=== PATIENT | male | born 2000 | race Caucasian/White ===

== ENCOUNTER 2024-11-27 23:19 | Emergency (ER) | payer OTHER, SELFPAY ==
[2024-11-27 23:29] VITALS: BP 123/75; PULSE 88; RESP 16; TEMP 36.9; O2SAT 99; BMI 25.1
[2024-11-28] MEDS: LIDOCAINE/EPINEP/TETRACAINE 3 ML GEL..ML. TOPICAL (00:10)
[2024-11-28] MEDS: LIDOCAINE 1%-EPI 1:100,000 20 ML INFILTRATI (00:25)
--- OUTSIDE RECORDS SUMMARY | 2024-11-28 00:33 | XMS_ITS | Clinical Summary ---
Author Organization [facility] Address [place], [place] [address] Care Team Providers Care Bruise Trimmer Name Role Phone Unavailable Primary Care Provider Unavailabl e Allergies Active Allergy Reactions Criticality Noted Date Comments Penicillins Hives High 05/17/2011 Medications Lantus Solostar U-100 Insulin 100 unit/mL (3 mL) pen ADMINISTER 28 TO 35 UNITS UNDER THE SKIN DAILY 2 Active insulin lispro, U-100, (HUMALOG KWIKPEN; ADMELOG SOLOSTAR) 100 unit/mL inpn pen ADMINISTER 60 UNITS UNDER THE SKIN DAILY 2 Active Dexcom G6 Transmitter for continuous blood glucose monitor (CGM) USE DIRECTED FOR CONTINUOUS GLUCOSE MONITORING. CHANGE EVERY 3 MONTHS 2 Active Active Problems Problem Noted Date Diagnosed Date Type 2 diabetes mellitus wit hout complication, with long-term current use of insulin 10/31/2022 Immunizations Name Administration Dates Next Due DTaP 08/19/2006, 2,01/01/2002,10/21 DTaP-HIB (TriHIBIT) 11/24/2002 HIB-HepB (Comvax) 01/01/2002,2001 HPV 9 (Gardasil 9) 07/04/2016,10/04/2015, 015 Hepatitis A (Peds) 08/24/2009,08/29/2007 Hepatitis B (Peds) 06/16/2002 Inactivated Polio Vaccine 08/19/2006,04/2002,01/01/2002,10/21 Influenza Virus, Unspecified 10/30/2021, 08/12/2020,08/10/2019,08/05,07/02/2016,10/04/2015,08/03/2014 ,08/17/2013 Influenza, IIV4 (Age 6-35 Mos) 08/17/2013 MENINGOCOCCAL VACCINE 2 VIAL [id number] (MENVEO) 10/06/2013 MMR 08/19/2006,08/27/2002 Pneumococcal conj 7-Valent (Prevnar 7) 0 11/24/2002,06/16/2002,02/19/2002,10/21 Tdap 10/06/2013 Varicella Vaccine 08/29/2007,08/27/2002 Family History Relation Name Status Comments Father Alive Mother Alive Social History Tobacco Use Types Packs/Day Years Used Date Smoking Tobacco: Never Smokeless Tobacco: Never Tobacco Cessation:Counseling Given: Not Answered PHQ-2 Answer Date Recorded PHQ-2 TOTAL SCORE 0 10/30/2022 Social Connections Answer Date Recorded Frequency of Communication with Friends and Fami ly Not on file 10/30/2022 Sex and Gender Information Value Date Recorded Sex Assigned at Not on file Legal Sex Male 2:59 PM CDT Gender Identity Not on file Sexual Orientation Not on file Obstetrics History Last Filed Vital Signs Vital Sign Reading Time Taken Comments Blood Pressure 122/74 10/30/2022 3:16 PM SUB ARC OPERATOR Pulse 68 10/30/2022 3:16 PM SUB ARC OPERATOR Temperature - - Respiratory Rate 16 10/30/2022 3:16 PM SUB ARC OPERATOR Oxygen Saturation 98% 10/30/2022 3:16 PM SUB ARC OPERATOR Inhaled Oxygen Concentration - - Weight 76.7 kg (169 lb) 10/30/2022 3:16 PM SUB ARC OPERATOR Height 176.5 cm (5' 9.5) 10/30/2022 3:16 PM SUB ARC OPERATOR Body Mass Index 24.6 10/30/2022 3:16 PM SUB ARC OPERATOR Plan of Treatment Health Maintenance Due Date Last Done Comments HIV for age 15-65 2016 Hepatitis C screening for age 18-79 2019 Tetanus booster 10/06/2023 10/06/2013 BMI (ht and wt on same day) for age 18+ 10/30/2023 10/30/2022 Depression screening for age 12+ 10/30/2023 10/30/2022 COVID-19 vaccine series ( season) 2024 07/11/2022, 04/19/2021, 03/29/2021 Influenza for age 9-49 07/12/2024 , 08/12/2020, 08/10/2019, Additional history exists Pneumococcal series for age 6-49 Aged Out 11/24/2002, 06/16/2002, 02/19/2002, Additional history exists No longer eligible based on patient's age to complete this topic Tdap Completed 10/06/2013 HPV series for age 9-26 Completed 07/04/20 16, 10/04/2015, 06/16/2015 [place] [id number]
--- OUTSIDE RECORDS SUMMARY | 2024-11-28 00:33 | XMS_ITS | Clinical Summary ---
Author Organization [facility] Address [address] [place] [address] Care Team Providers Care Artificial Log Machine Operator Name Role Phone Yana Ballard MD Primary Care Provider + [phone] Source Comments You are receiving this document as you are listed as the primary care provider,follow-up provider, or the patient has been referred to you for consultation.This is in compliance with the Medicare and[employer] EHR Incentive Program,which states Providers who transition their patient to another setting of careor provider of care or refers their patient to another provider of care shouldprovide summary care record for each transition of care or referral. [employer] Allergies Active Allergy Reactions Criticality Noted Date Comments Penicillins Hives High 05/17/2011 Medications Medication Sig Dispensed Refills Start Date End Date Status lancets (NATE MICROLET)Indication s:Type 1 diabetes mellitus with hyperglycemia (HRC) Use 3-4 Each to test daily. Use as directed. Pharmacy dispense brand based on insurance. 100 Each 11 11/12/2017 Active acetone urine (KETOSTIX) test stripIndications:Ty pe 1 diabetes mellitus without complications (HRC) Use 1 Each to test as needed. Test when sick or glucose>300 two times in a row 50 Each 3 11/01/2022 Active Accu-Chek Vannessa Plus meterIndications:Ty pe 1 diabetes mellitus without complications (HRC) Use 1 Each to test as needed (For High Blood Sugar). 1 Each 2 02/13/2024 Active blood glucose (ACCU-CHEK VANNESSA PLUS) test stripIndications:Ty pe 1 diabetes mellitus without complications (HRC) Use 1 Each to test 4 times a day. 150 Strip 11 02/13/2024 Active insulin lispro, human, (HUMALOG; ADMELOG) 100 UNIT/ML injection penIndications:Type 1 diabetes mellitus without complications (HRC) Inject 50 Units subcutaneously daily. 45 mL 3 06/25/2024 Active insulin glargine (LANTUS SOLOSTAR) 100 UNIT/ML penIndications:Type 1 diabetes mellitus without complications (HRC) Inject 28-35 Units subcutaneously daily. 30 mL 3 06/25/2024 Active glucagon (BAQSIMI TWO PACK) 3 MG/DOSE nasal powderIndications:T ype 1 diabetes mellitus without complications (HRC) Place 1 Dose (3 mg) into one nostril as needed for Hypoglycemia. May repeat in 15 minutes prn. Do not open tube until ready to use. 1 Each 06/25/2024 Active Dexcom G7 Sensor continuous blood glucose deviceIndications:T ype 1 diabetes mellitus without complications (HRC) Inject 1 Each subcutaneously every 10 days. Use as directed for continuous glucose monitoring. Change sensor every 10 days. 9 Each 3 06/25/2024 Active insulin pen needle (B-D UF III MINI PEN NEEDLES) 31G X 5 MMIndications:Type I diabetes mellitus, well controlled (HRC) INJECT 6 TO 7 SUBCUTANEOUSLY DAILY 200 Each 5 09/25/2024 Active Active Problems Problem Noted Date Diagnosed Date Raynaud's phenomenon without gangrene 10/30/2021 Overview (10/30/2021): feet termination clerk (current) use of insulin 04/05/2016 Type 1 diabetes mellitus without complications 0 03/06/2011 Resolved Problems Problem Noted Date Diagnosed Date Resolved Date Research study patient 04/05/201610/08 Insulin pump status 01/27/2013 10/18/20 15 Overview (07/03/2017): Insulin pump status (ACG) Type 1 diabetes mellitus 03/06/201106/2011 Overview (07/03/2017): Type I (juvenile type) diabetes mellitus without mention of complication, not stated as uncontrolled (HRC) Encounters Date Type Department Care Team Description 11/06/2024 2:30 PM FINE ARTS PACKER Office Visit [place] [address] [facility] [address] [place] [address]. [place] [address] Elda Riley MD Type 1 diabetes mellitus without complications (HRC) (Primary Dx); MCC (current) use of insulin (HRC) 09/24/2024 Refill [place] [address] [facility] [address] [place] [address]. [place] [address] Elda Riley MD Refill (B-D UF III MINI PEN NEEDLES 31G X 5 MM needle [Pharmacy Med Name: B-D PEN NDL MINI [id number](01/24)PRPL]) from Last 3 Months Immunizations Name Administration Dates Next Due 9vHPV (Gardasil 9) 07/04/2016,10/04/2015, 015 DTaP 08/19/2006, 2,01/01/2002,2000 DTaP/Hib 11/24/2002 Flu Vac (3+ yrs) 07/25/2011, 1,08/24/2009,2007,08/29/2007,10/31/2006,08/27/2005,0 11/19/2003,10/16/2003 Flu Vac Preserv Free (3+yrs) 09/16/2012 Fluzone Qiv Multidose Vial 0 .25 (6-35 Mos) 09/08/2018,10/04/2015 HepA Ped/Adol (1-18 yrs) 08/24/2009,08/29/2007 HepB Ped/Adol (0-18 yrs) 06/16/2002 Hib/HBV 01/01/2002,2001 IPV (Polio) 08/19/2006, 2,01/01/2002,2000 Influenza (Flucelvax), Prese rv Free QIV 10/31/2023,07/11/2022 Influenza (Fluzone 0.25, 6-35 mos) 08/17/2013 Influenza IIV4 (Quadrivalent ) 0.5mL (36669) 10/30/2021,08/12/2020,08/10/2019,2016,07/02/2016,10/04/2015,08/03/2014,1 MCV4 (Menactra) 05/21/2022 MCV4 Menveo 2m.+ (two vial) 10/06/2013 MMR 08/19/2006,08/27/2002 Pfizer Monovalent 12+ 07/11/2022 Pfizer Monovalent 12+ Purple Top 04/19/2021,03/11 Pneumococcal 7, PED 11/24/2002, 2,02/19/2002,2000 Tdap 05/21/2022,10/06/2013 Varicella 08/29/2007,08/27/2002 Family History Medical History Relation Name Comments Hypertension Father Diabetes, Type I Other 1 Lupus Other 2 Hypertension Paternal Grandfather Hypertension Paternal Grandmother Hypertension Paternal Uncle Relation Name Status Comments Father Other 1 Other 2 Paternal Grandfather Paternal Grandmother Paternal Uncle Social History Tobacco Use Types Packs/Day Years Used Date Smoking Tobacco: Never Smokeless Tobacco: Never Alcohol Use Standard Drinks/Week Comments No 0 (1 standard drink = 0.6 oz pur e alcohol) Sex and Gender Information Value Date Recorded Sex Assigned at Male 06/29/2021 2:36 PM CDT Gender Identity Male 06/29/2021 2:36 PM CDT Sexual Orientation Straight 06/29/2021 2: 36 PM CDT Last Filed Vital Signs Vital Sign Reading Time Taken Comments Blood Pressure 102/70 11/06/2024 2:41 PM FINE ARTS PACKER Pulse 64 11/06/2024 2:41 PM FINE ARTS PACKER Temperature - - Respiratory Rate 18 10/31/2017 10:47 AM FINE ARTS PACKER Oxygen Saturation - - Inhaled Oxygen Concentration - - Weight 78.6 kg (173 lb 3.2 oz) 11/06/2024 2:41 P M FINE ARTS PACKER Height 177.6 cm (5' 9.92) 11/06/2024 2:41 PM CS T Body Mass Index 24.91 11/06/2024 2:41 PM FINE ARTS PACKER Plan of Treatment Upcoming Encounters Date Type Department Care Team (Late st Contact Info) Description 03/29/2025 10:00 AM CDT Appointment [facility] Pediatric Endocrinology [address] [place] [address] Elda Riley MD [address] [place], [place] [id number] Health Maintenance Due Date Last Done Comments Diabetes: Foot Exam 2001 Hep C Screening (Preventive Services) 2001 Pneumococcal (1 - PCV) 2007 3, 06/16/2002, 02/19/2002, Additional history exists HIV Screening (Preventive Services) 2017 Adult Preventive Visit 2019 COVID-19 Vaccine ( season) 2024 07/11/2022, 04/19/2021, 03/29/2021 Influenza (#1) 2024 10/31/2023, 06/13, 10/30/2021, Additional history exists Diabetes: Creatinine 10/31/2024 10/31/2023, 11/01/2022, 10/30/2021, Additional history exists Diabetes: Urine Microalbumin 10/31/2024 10/31/2023, 11/01/2022, 10/30/2021, Additional history exists Diabetes: HGBA1C 12/26/2024 06/25/2024, , 05/10/2023, Additional history exists Diabetes: Eye Exam 06/03/2025 06/03/2024, 1 01/07/2022, 06/30/2021 Diabetes: Lipid Panel 11/01/2027 11/01/2022 , 10/30/2021, 10/20/2018, Additional history exists DTaP/Tdap/Td (8 - Tdap) 05/21/2032 05/21/20, 10/06/2013, 08/19/2006, Additional history exists Zoster/Shingles (1 of 2) 2051 HepB Completed 06/16/2002, 12/13, 2001 Hib Completed 11/24/2002, 12/13, 2001 IPV (Polio) Completed 08/19/2006, 04/2002, 01/01/2002, Additional history exists Varicella Completed 08/29/2007, 08/27/2002 HepA Completed 08/24/2009, 08/29/2007 HPV Vaccine Completed 07/04/2016, 09/12, 06/16/2015 MCV4 Aged Out 05/21/2022, 10/06/2013 No lo nger eligible based on patient's age to complete this topic Procedures Procedure Name Priority Date/Time Associated Diagnosis Comments HEMOGLOBIN A1C RAPID (LAB REFLEX ORDER) Routine 11/06/2024 2:35 PM FINE ARTS PACKER Type 1 diabetes mellitus without complications (HRC) HGB A1C Routine 06/25/2024 2:56 PM CDT Type 1 diabetes mellitus without complications (HRC) BRIGIDO (DIABETIC EYE EXAM) 06/03/2024 ALBUMIN/CREAT RATIO Routine 10/31/2023 1 1:30 AM FINE ARTS PACKER Type 1 diabetes mellitus without complications (HRC) CREATININE / GFR Routine 10/31/2023 11:2 0 AM FINE ARTS PACKER Type 1 diabetes mellitus without complications (HRC) LDL CHOLESTEROL, DIRECT MEASURED Routine 11/01/2022 12:21 PM FINE ARTS PACKER Type 1 diabetes mellitus without complications (HRC) from Last 3 Months or Most Recently Relevant to Health Maintenance Results * (ABNORMAL) Hgb A1C (11/06/2024 2:35 PM FINE ARTS PACKER) Hemoglobin A1C (Rapid) 7.2(H) <=5.6 % 11/06/2024 2:47 PM [place] [id number] Estimated Average Glucose (Calc) 160 < 117 mg/dL 11/06/2024 2:47 PM [place] [id number] Comment:Estimated average gl ucose (eAG) converts A1c into glucose units (mg/dL) and estimates average glucose over the past approximately 3 months. The eAG reference interval (<117 mg/dL) corresponds to an A1c of <5.7%. Performing Location Endo [facility] 11/06/2024 2:47 PM [facility] Blood 11/06/2024 2:35 PM FINE ARTS PACKER 11/06/2024 2:35 PM FINE ARTS PACKER Narrative [place] [address] [facility] - 11/06/2024 2:47 PM FINE ARTS PACKER For patients not previously diagnosed with diabetes: 5.7-6.4%: Increased risk for diabetes 6.5% and greater: Diagnostic for diabetes For patients diagnosed with diabetes: <8.0%: Goal of therapy for ages 18-75 Clinicians may recommend a higher or lower goal for specific individuals. The test method used for this Hemoglobin A1c result can experience interference from elevated hemoglobin and other hemoglobin variants. In patients with results that do not correlate clinically, contact the lab for further direction. Elda Riley MD LAB_1 [place] [address] [facility] [address] [place] [id number], [facility] * (ABNORMAL) Hgb A1C - Collect in Clinic (06/25/2024 2:56 PM CDT) Pathologist [facility] Hemoglobin A1C (Rapid) 7.0(H) <=5.6 % 06/25/2024 3:11 PM CDT [place] [address] [facility] Performing Location [facility]o [facility] 06/25/2024 3:11 PM CDT [place] [address] [facility] Estimated Average Glucose (Calc) 154 < 117 mg/dL 06/25/2024 3:11 PM CDT [place] [address] [facility] Comment:Estimated average gl ucose (eAG) converts A1c into glucose units (mg/dL) and estimates average glucose over the past approximately 3 months. The eAG reference interval (<117 mg/dL) corresponds to an A1c of <5.7%. Blood Capillary / Unknown 06/25/2024 2:56 PM CDT 06/25/2024 2:57 PM CDT Narrative [place] [address] [facility] - 06/25/2024 3:11 PM CDT For patients not previously diagnosed with diabetes: 5.7-6.4%: Increased risk for diabetes 6.5% and greater: Diagnostic for diabetes For patients diagnosed with diabetes: <8.0%: Goal of therapy for ages 18-75 Clinicians may recommend a higher or lower goal for specific individuals. The test method used for this Hemoglobin A1c result can experience interference from elevated hemoglobin and other hemoglobin variants. In patients with results that do not correlate clinically, contact the lab for further direction. Elda Riley MD LAB_1 Performing Organization Address [facility] Co de Phone Number [facility] [address] [facility] [address] [place] [address], [facility] * BRIGIDO (DIABETIC EYE EXAM) (06/03/2024) Elda Riley MD DUMMY/OTHER/AR * Albumin/Creatinine Ratio,Random Urine (10/31/2023 11:30 AM FINE ARTS PACKER) Albumin/Creati nine Ratio, Urine, Random <6 <30 mg/g 10/31/2023 2:49 PM FINE ARTS PACKER [facility] [address] LAB[facility]ORY Albumin, Urine, Random <10.0 mg/L 10/31/2023 2:49 PM FINE ARTS PACKER [facility] [address] LAB[facility] Creatinine, Urine, Random 169 >20 mg/dL mg/dL 10/31/2023 2:49 PM FINE ARTS PACKER [facility] [address] LAB[facility]ORY Urine Non-blood Collection / Unknown 10/31/2023 11:30 AM FINE ARTS PACKER 10/31/2023 11:30 AM FINE ARTS PACKER Elda Riley MD LAB_1 Performing Organization Address [facility] de Phone Number [facility] [address] [facility] [place] [address], [facility] [phone] * Creatinine / GFR (10/31/2023 11:20 AM FINE ARTS PACKER) Creatinine 0.93 0.73 - 1.18 mg/dL 10/31/2023 2:02 PM FINE ARTS PACKER [facility] [address] LAB[facility]ORY GFR, Estimated >60 >60 mL/min/1.7 3m2 10/31/2023 2:02 PM FINE ARTS PACKER [facility] [address] LAB[facility]ORY Blood Venipuncture / Unknown 10/31/2023 11:20 AM FINE ARTS PACKER 10/31/2023 11:22 AM FINE ARTS PACKER Elda Riley MD LAB_1 Performing Organization Address City/[facility]/ZIP Co de Phone Number [facility] [address] [facility] [place] [address], [place] [phone] * LDL Chol Direct Measure (11/01/2022 12:21 PM FINE ARTS PACKER) LDL, Direct 87 <=130 mg/dL 11/01/2022 2:49 PM FINE ARTS PACKER [facility] [address] LAB[facility]ORY Blood Venipuncture / Unknown 11/01/2022 12:21 PM FINE ARTS PACKER 11/01/2022 12:21 PM FINE ARTS PACKER Elda Riley MD LAB_1 Performing Organization Address [facility] Co de Phone Number [facility] [address] LAB[address] [place] [address], [facility] [phone] from Last 3 Months or Most Recently Relevant to Health Maintenance Care Teams Artificial Log Machine Operator Relationship Specialty Start Date End Date Yana Ballard MD [facility] [address] [facility] [address] [place] [id number] PCP - General 11/18/13
--- OUTSIDE RECORDS SUMMARY | 2024-11-28 00:34 | XMS_ITS | Encounter Summary ---
[facility] Address [address] [place] [id number] Care Team Providers Care Band Tier Name Role Phone Yana Ballard MD Primary Care Provider Reason for Visit * Reason Comments Follow-up Diabetes Encounter Details Date Type Department Care Team (Late st Contact Info) Description 11/06/2024 2:30 PM SAMPLE ROOM SUPERVISOR Office Visit [place] [address] Pediatric Endocrinology [address] [place] [address]. [place], [place] [phone] Elda Riley MD [address] [place] [id number] Type 1 diabetes mellitus without complications (HRC) (Primary Dx); intermission coordinator (current) use of insulin (HRC) Social History Tobacco Use Types Packs/Day Years Used Date Smoking Tobacco: Never Smokeless Tobacco: Never Alcohol Use Standard Drinks/Week Comments No 0 (1 standard drink = 0.6 oz pur e alcohol) Sex and Gender Information Value Date Recorded Sex Assigned at Male 06/29/2021 2:36 PM CDT Gender Identity Male 06/29/2021 2:36 PM CDT Sexual Orientation Straight 06/29/2021 2: 36 PM CDT documented as of this encounter Last Filed Vital Signs Vital Sign Reading Time Taken Comments Blood Pressure 102/70 11/06/2024 2:41 PM SAMPLE ROOM SUPERVISOR Pulse 64 11/06/2024 2:41 PM SAMPLE ROOM SUPERVISOR Temperature - - Respiratory Rate - - Oxygen Saturation - - Inhaled Oxygen Concentration - - Weight 78.6 kg (173 lb 3.2 oz) 11/06/2024 2:41 P M SAMPLE ROOM SUPERVISOR Height 177.6 cm (5' 9.92) 11/06/2024 2:41 PM CS T Body Mass Index 24.91 11/06/2024 2:41 PM SAMPLE ROOM SUPERVISOR documented in this encounter Patient Instructions * Patient Instructions* Elda Riley MD - 11/06/2024 2:30 PM SAMPLE ROOM SUPERVISOR Hemoglobin A1c = 7.2% 1. No change in insulin doses today 2. Return visit in 4-6 months (March 2025) LE ROOM SUPERVISOR documented in this encounter Progress Notes * Elda Riley MD - 11/06/2024 2:30 PM CST Images from the original note were not included. PEDIATRIC ENDOCRINOLOGY [address] [place] [address] Patient Name: Shaq Hodge Date of : 2000 MR Number: [id number] Chief Complaint: Type 1 diabetes. HPI: Shaq Hodge is a 24 y.o. diagnosed with type 1 diabetes in February 2011. Last visit was on 06/25/2024. Shaq is seen today in clinic with his mom. Diabetes is managed with injections and CGM (DexCom G6). Hemoglobin A1c is 7.2% today. Shaq has not had any issues with severe hypoglycemia or ketones. He has not had any problems with headaches, vision changes, nausea, vomiting, diarrhea, constipation, abdominal pain, joint pain, temperature intolerance or fatigue. Labs done 10/31/2023 were normal. Dilated eye exam done and normal on 06/03/2024 . CGM Data: Current Diabetes Medications: Lantus 25-30 units at 9 p.m. Humalog 1 unit per 7 grams. NovoLog 1 unit per 40 over 140 mg/dL. Additional Medications and Allergies were reviewed and updated in the EMR today. Past Medical History, Past Surgical History, Family Medical History were reviewed and updated in the Electronic Medical Record today. 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 In his el year at [employer] for [id number] academic year. Living in a house with teammates. Review of systems: A complete review of systems was done and negative for any pertinent findings other than those things noted in the HPI. Exam: BP 102/70 (BP Location: Left Arm, BP Cuff Size: Regular) Pulse 64 Ht 5' 9.92 (1.776 m) Wt 173 lb 3.2 oz (78.6 kg) BMI 24.91 kg/m?? General: Appearance: alert, well appearing, and in no distress. HEENT: Normocephalic, pupils equal and round, conjunctivae clear, ears are normal in form and position, nares clear, oral mucosa moist. Neck: Deferred Resp: Normal breathing. No coughing. CV: Good perfusion. GI: Deferred Musculoskeletal: Normal gait and station, good muscle strength and tone. No cyanosis, clubbing or edema. Neuro: Grossly intact. Skin: Clear. Laboratory data: Hemoglobin A1c 7.2% Impression: Type 1 diabetes Plan: Time was spent discussing the followin. CGM data reviewed. Hemoglobin A1c discussed. 2. No change in insulin doses today 3. Reviewed use of Omnipod 5. Shaq would like to give this a try, prefers using G7 and also wantsto use iPhone so will wait for now. Hopefully over summer 2024. 4. Return visit in 4-6 months (March 2025) Billing based on: Complexity LE ROOM SUPERVISOR documented in this encounter Plan of Treatment Upcoming Encounters Date Type Department Care Team (Late st Contact Info) Description 03/29/2025 10:00 AM CDT Appointment [place] [address] Pediatric Endocrinology [address] [place] [address]. [place], [place] [phone] Elda Riley MD [address] [place] [address] documented as of this encounter Procedures Procedure Name Priority Date/Time Associated Diagnosis Comments HEMOGLOBIN A1C RAPID (LAB REFLEX ORDER) Routine 11/06/2024 2:35 PM SAMPLE ROOM SUPERVISOR Type 1 diabetes mellitus without complications (HRC) documented in this encounter Results * (ABNORMAL) Hgb A1C (11/06/2024 2:35 PM SAMPLE ROOM SUPERVISOR) Hemoglobin A1C (Rapid) 7.2(H) <=5.6 % 11/06/2024 2:47 PM SAMPLE ROOM SUPERVISOR [place] [address] [facility] Estimated Average Glucose (Calc) 160 < 117 mg/dL 11/06/2024 2:47 PM SAMPLE ROOM SUPERVISOR [place] [address] [facility] Comment:Estimated average gl ucose (eAG) converts A1c into glucose units (mg/dL) and estimates average glucose over the past approximately 3 months. The eAG reference interval (<117 mg/dL) corresponds to an A1c of <5.7%. Performing Location Endo [address] REPORTER 11/06/2024 2:47 PM [place] [address] [facility] Blood 11/06/2024 2:35 PM SAMPLE ROOM SUPERVISOR 11/06/2024 2:35 PM SAMPLE ROOM SUPERVISOR Narrative [place] [address] [facility] - 11/06/2024 2:47 PM SAMPLE ROOM SUPERVISOR For patients not previously diagnosed with diabetes: [...] for further direction. Elda Riley MD LAB_1 [place] [address] [facility] [address] [place] [address], [facility] documented in this encounter Visit Diagnoses Diagnosis Type 1 diabetes mellitus without complications (HRC)- Primary Type I (juvenile type) diabetes mellitus without mention of complication, not stated as uncontrolled intermission coordinator (current) use of insulin (HRC) documented in this encounter Care Teams Band Tier Relationship Specialty Start Date End Date Yana Ballard MD [facility] [address] [place] [address] [address] [place], [place] [address] PCP - General 11/18/13 documented as of this encounter
--- NOTE | 2024-11-28 00:36 | ED_ITS ---
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 He noticed he was bleeding, and the adjunct trainer told that he probably needs a stitch or 2, he does have a history of diabetes. Allergies are to penicillin which cause a r marco, he does [employer]. No pain in the elbow is able to move it normally denies any numbness tingling or weakness, no other history of head injury neck injury or other issue. Related Data Allergies Allergy/AdvReac Type Severity Reaction Status Date / Time Penicillins AdvReac Unknown Verified 11/27/24 23:33 Review of Systems Status of ROS: Reports: 10 or more systems reviewed and unremarkable except as noted in History and below [facility] Medical History Type 1 diabetes ?E10.9 - Type 1 diabetes mellitus without complications (ICD-10) Exam Narrative: Exam Narrative: Tetanus is up-to-date, on examination left elbow has approximately a 6-7 mm gaping laceration on the posterior lateral side of his left elbow, there is a little bit of bleeding from the area. Elbow moves through full range of motion of flexion extension and supination pronation, radial and brachial pulses are normal. Cap refill normal sensation normal. Const: Vital Signs, click to edit/add: Vital Signs - 24 hr 11/27/24 23:29 Temperature 98.4 F Pulse Rate [Left P ulse Oximeter] 88 Respiratory Rate 16 Blood Pressure [Ri ght Upper Arm] 123/75 Pulse Oximetry 99 Oxygen Delivery Me thod Room Air Documenting provider has reviewed patient's vital signs: yes Course Course ED Course: I was able to put some let on the wound, then cleaned it out very well with Hibiclens, there is no evidence of a foreign body, and we did use 2 sutures of 4-0 Prolene simple fashion to close the wound to stop bleeding. Bacitracin dry dressing were applied. He is a hockey game to more night I told him he probably should not play any told he probably will play anyway. Went over signs and symptoms of infection, or worsening condition. Vital Signs Vital signs: Initial Vital Signs Temperature 98.4 F 11/27/24 23:29 Temperature Source Temporal Artery Scan 11/27/24 23:29 Pulse Rate 88 11/27/24 23:29 Pulse Rhythm Regular 11/27/24 23:29 Respiratory Rate 16 11/27/24 23:29 Blood Pressure 123/75 11/27/24 23:29 Blood Pressure Mean 91 11/27/24 23:29 Blood Pressure Position Sitting 11/27/24 23:29 Pulse Oximetry 99 11/27/24 23:29 Oxygen Delivery Method Room Air 11/27/24 23:29 Vital Signs Temperature 98.4 F 11/27/24 23:29 Pulse Rate 88 11/27/24 23:29 Respiratory Rate 16 11/27/24 23:29 Blood Pressure 123/75 11/27/24 23:29 Pulse Oximetry 99 11/27/24 23:29 Oxygen Delivery Method Room Air 11/27/24 23:29 Temperature 98.4 F 11/27/24 23:29 Pulse Rate 88 11/27/24 23:29 Respiratory Rate 16 11/27/24 23:29 Blood Pressure 123/75 11/27/24 23:29 Pulse Oximetry 99 11/27/24 23:29 Oxygen Delivery Method Room Air 11/27/24 23:29 Medications Administered Medications: Generic Name Dose Route Start Last Admin Trade Name Freq PRN Reason Stop Dose Admin Lidocaine/Epinephrine 20 ml 11/28/24 00:14 11/28/24 00:25 Lidocaine 1%-Epi 1:100,000 INFILTRATI 11/28/24 00:15 20 ml ONCE ONE Administration Lidocaine/Epinephrine/Tetracaine 3 ml 11/28/24 00:13 11/28/24 00:10 Lidocaine/Epinep/Tetracaine 3 Ml Gel..Ml. TOPICAL 11/28/24 00:14 3 ml ONCE ONE Administration Discharge Plan Discharge Clinical Impression: Laceration Patient Disposition: Home w/ Parent or Adult Condition: Improved Instructions: Laceration (DC) Additional Instructions: Home rest, bacitracin every day to the wound, sutures should come out in 10 days. Increasing redness swelling or pain would be infection in you should be seen earlier for this. There should be a bandage on this and he probably should not play hockey with a wound there, but your going to make her own decision anyway, your tetanus is up-to-date, sutures should come out in 10 days and a adjunct trainer can do this for you. Activity Level: Light activity Stand Alone Forms: [employer] Info Instructions
== END 2024-11-28 00:40 | disposition home or self-care (01) ==
PROVIDERS: Emergency Provider Family Medicine
DX: S51.012A Laceration without foreign body of left elbow, initial encounter (principal); W22.01XA Walked into wall, initial encounter; Y93.22 Activity, ice hockey
CPT/HCPCS: 12001; 99283